=== PATIENT | male | born 1985 | race Caucasian/White ===

== ENCOUNTER 2018-10-24 20:27 | Emergency (ER) | payer SELFPAY ==
[2018-10-24] MEDS ORDERED: TETANUS & DIPHTHERIA TOX,ADULT 0.5 ML VIAL ONE (20:53)
[2018-10-24] MEDS ORDERED: LIDOCAINE 1% MPF 5 ML VIAL ONE (21:06)
[2018-10-24] MEDS ORDERED: LIDOCAINE 2% MPF 5 ML VIAL ONE (22:30)
[2018-10-24] MEDS ORDERED: LIDOCAINE 1% W/EPI 1:100,000 MDV 20 ML VIAL ONE (22:54)
[2018-10-24] MEDS ORDERED: HYDROCODONE/APAP 5/325 MG TAB ONE (22:56)
[2018-10-24] MEDS ORDERED: CEPHALEXIN 250 MG CAP ONE (23:33)
[2018-10-24] MEDS ORDERED: KETOROLAC 30 MG/ML INJ ONE (23:37)
--- NOTE | 2018-10-24 23:49 | ER ---
Nurse's Notes [facility] Name: Dick Rae Age: 33 yrs Sex: Male : 1985 Arrival Date: 10/24/2018 Time: 20:32 Bed 18 Private MD: Diagnosis: Laceration without foreign body of nose;Superficial injury of head Presentation: 10/24 20:37 Presenting complaint: EMS states: they were toned out for pt having a possible seizure bb or syncopal episode pt fell and now has laceration to left nostril. Transition of care: patient was not received from another setting of care. Onset of symptoms was October 24, 2018. Risk Assessment: Do you want to hurt yourself or someone else? Patient reports no desire to harm self or others. Initial Sepsis Screen: Does the patient meet any 2 criteria? No. Patient's initial sepsis screen is negative. Does the patient have a suspected source of infection? No. Patient's initial sepsis screen is negative. Care prior to arrival: None. 20:37 Method Of Arrival: EMS: [facility] bb 20:37 Acuity: NIURKA 3 bb Historical: - Allergies: 20:40 Paxil; bb - Home Meds: 20:40 None [Active]; bb - PMHx: 20:40 Seizures; bb - PSHx: 20:40 Appendectomy; bb - Immunization history:: Adult Immunizations up to date, Last tetanus immunization: unknown. - Social history:: Smoking status: Patient uses tobacco products, smokes one-half pack cigarettes per day, Patient/guardian denies using alcohol, street drugs. - Ebola Screening: : No symptoms or risks identified at this time. Screenin:50 Abuse screen: Denies threats or abuse. Nutritional screening: No deficits noted. jd3 Tuberculosis screening: No symptoms or risk factors identified. Fall Risk Ambulatory Aid- None/Bed Rest/Nurse Assist (0 pts). Gait- Normal/Bed Rest/Wheelchair (0 pts) Mental Status- Oriented to own ability (0 pts). Total Newby Fall Scale indicates No Risk (0-24 pts). Assessment: 20:47 General: Appears in no apparent distress. uncomfortable, Behavior is calm, cooperative, jd3 appropriate for age. Pain: Complains of pain in face Quality of pain is described as aching. Neuro: Level of Consciousness is awake, alert, obeys commands, Oriented to person, place, time, situation, Reports pt unsure if he had a syncope episode or not. Denies weakness blurred vision dizziness. Cardiovascular: Capillary refill < 3 seconds Patient's skin is warm and dry. Respiratory: Airway is patent Respiratory effort is even, unlabored, Respiratory pattern is regular, symmetrical. GI: No signs and/or symptoms were reported involving the gastrointestinal system. : No signs and/or symptoms were reported regarding the genitourinary system. EENT: No signs and/or symptoms were reported regarding the EENT system. Derm: Skin is intact, Skin is dry, Skin is normal, Skin temperature is warm Wound noted nasal septum and left nostril Wound is laceration <2 cm to left nostril noted with bleeding stopped. small amount of bleeding reported. pt reports pain to site. Musculoskeletal: Circulation, motion, and sensation intact. Range of motion: intact in all extremities. 21:47 Reassessment: Patient appears in no apparent distress at this time. Patient and/or jd3 family updated on plan of care and expected duration. Pain level reassessed. Patient is alert, oriented x 3, equal unlabored respirations, skin warm/dry/pink. awaiting CT results. 22:51 Reassessment: Patient appears in no apparent distress at this time. Patient and/or jd3 family updated on plan of care and expected duration. Pain level reassessed. Patient is alert, oriented x 3, equal unlabored respirations, skin warm/dry/pink. provider at bedside suturing. 23:56 Reassessment: Patient appears in no apparent distress at this time. Patient and/or jd3 family updated on plan of care and expected duration. Pain level reassessed. Patient is alert, oriented x 3, equal unlabored respirations, skin warm/dry/pink. reported understanding of discharge instructions, even and steady gait upon discharge. Vital Signs: 20:40 BP 115 / 68; Pulse 111; Resp 16 S; Temp 98.3(O); Pulse Ox 100% on R/A; Weight 61.23 kg bb (R); Height 6 ft. 0 in. (182.88 cm) (R); Pain 4/10; 21:48 BP 108 / 76; Pulse 83; Resp 16 S; Pulse Ox 100% on R/A; jd3 22:50 BP 113 / 84; Pulse 96; Resp 17 S; Pulse Ox 100% on R/A; jd3 20:40 Body Mass Index 18.31 (61.23 kg, 182.88 cm) bb [place] Coma Score: 20:59 Eye Response: spontaneous(4). Verbal Response: oriented(5). Motor Response: obeys kb commands(6). Total: 15. 21:00 Eye Response: spontaneous(4). Verbal Response: oriented(5). Motor Response: obeys kb commands(6). Total: 15. ED Course: 20:32 Patient arrived in ED. ds1 20:40 Triage completed. bb 20:40 Arm band placed on Patient placed in an exam room, on a stretcher, on pulse oximetry. bb 20:43 An[facility] Goodson F[facility]-C [facility]. kb 20:43 Tolu Barajas MD is Attending Physician. kb 20:46 Gatito Diana RN is Primary Nurse. jd3 20:51 Patient has correct armband on for positive identification. Bed in low position. Call jd3 light in reach. Side rails up X2. Adult w/ patient. 21:[address] via stretcher. nj 21:22 CT Head Brain wo Cont In Process Unspecified. EDMS 23:56 No provider procedures requiring assistance completed. Patient did not have IV access jd3 during this emergency room visit. Administered Medications: 20:56 Drug: Tetanus-Diphtheria Toxoid Adult 0.5 ml {Waistline Joiner Lockstitch: [employer]. Exp: jd3 06/20/2020. Lot #: [id number]. } Route: IM; Site: right deltoid; 21:55 Follow up: Response: No adverse reaction jd3 22:29 Drug: Lidocaine (1 %) 1 vials {Note: given by Angy ORTIZ..} Volume: 5 ml; jd3 Route: Infiltration; 22:57 Drug: [place] 5 mg-325 mg 1 tabs Route: PO; jd3 23:50 Follow up: Response: No adverse reaction; RASS: Alert and Calm (0) jd3 23:40 Drug: KeFLEX 500 mg Route: PO; jd3 23:55 Follow up: Response: No adverse reaction jd3 23:40 Drug: TORadol 30 mg Route: IM; Site: left deltoid; jd3 23:55 Follow up: Response: No adverse reaction jd3 Outcome: 23:48 Discharge ordered by MD. aviles 23:56 Discharged to home ambulatory, with family. jd3 23:56 Condition: stable 23:56 Discharge instructions given to patient, family, Instructed on discharge instructions, follow up and referral plans. medication usage, Demonstrated understanding of instructions, follow-up care, medications, Prescriptions given X 2. 23:57 Patient left the ED. jd3 Signatures: Dispatcher [employer] EDNH Angy Goodson, DIANA BLUM-Joseline Santana ds1 Cydney Brown, RN RN Sean Schumacher Jonathon, RN RN jd3 Corrections: (The following items were deleted from the chart) 20:50 20:47 Derm: Skin is intact, Skin is dry, Skin is normal, Skin temperature is warm jd3 jd3
--- NOTE | 2018-10-24 23:49 | EDPHYS ---
Physician Documentation [facility] Name: Dick Rae Age: 33 yrs Sex: Male : 1985 Arrival Date: 10/24/2018 Time: 20:32 Bed 18 Private MD: ED Physician Tolu Barajas HPI: 10/24 21:00 This 33 yrs old Male presents to ER via EMS with complaints of fall, kb laceration of face. 21:00 The patient or guardian reports a laceration, 2.5 cm(s), clean. The complaints affect kb the base of left nostril and nasal septum. Context of injury: The problem was sustained at home, outdoors, resulted from a fall, while walking, slipped in water in garage. Onset: The symptoms/episode began/occurred just prior to arrival. Associated signs and symptoms: Loss of consciousness: This patient experience a loss of consciousness, the patient was "dazed", Pertinent positives: loss of conciousness, injury. Severity of symptoms: At their worst the symptoms were moderate, in the emergency department the symptoms are unchanged. The patient has not experienced similar symptoms in the past. The patient has not recently seen a physician. Historical: - Allergies: 20:40 Paxil; bb - Home Meds: 20:40 None [Active]; bb - PMHx: 20:40 Seizures; bb - PSHx: 20:40 Appendectomy; bb - Immunization history:: Adult Immunizations up to date, Last tetanus immunization: unknown. - Social history:: Smoking status: Patient uses tobacco products, smokes one-half pack cigarettes per day, Patient/guardian denies using alcohol, street drugs. - Ebola Screening: : No symptoms or risks identified at this time. ROS: 20:58 Constitutional: Negative for fever, chills, and weight loss, ENT: Negative for injury, kb pain, and discharge, Neck: Negative for injury, pain, and swelling, Cardiovascular: Negative for chest pain, palpitations, and edema, Respiratory: Negative for shortness of breath, cough, wheezing, and pleuritic chest pain, Abdomen/GI: Negative for abdominal pain, nausea, vomiting, diarrhea, and constipation, MS/Extremity: Negative for injury and deformity, Neuro: Negative for headache, weakness, numbness, tingling, and seizure. 20:58 Skin: Positive for laceration(s), of the nasal septum and left nostril, base of nasal septum and left nostril. Exam: 20:58 Constitutional: This is a well developed, well nourished patient who is awake, alert, kb and in no acute distress. ENT: Nares patent. No nasal discharge, no septal abnormalities noted. Tympanic membranes are normal and external auditory canals are clear. Oropharynx with no redness, swelling, or masses, exudates, or evidence of obstruction, uvula midline. Mucous membranes moist. Neck: Trachea midline, no thyromegaly or masses palpated, and no cervical lymphadenopathy. Supple, full range of motion without nuchal rigidity, or vertebral point tenderness. No Meningismus. Chest/axilla: Normal chest wall appearance and motion. Nontender with no deformity. No lesions are appreciated. Cardiovascular: Regular rate and rhythm with a normal S1 and S2. No gallops, murmurs, or rubs. Normal PMI, no JVD. No pulse deficits. Respiratory: Lungs have equal breath sounds bilaterally, clear to auscultation and percussion. No rales, rhonchi or wheezes noted. No increased work of breathing, no retractions or nasal flaring. Abdomen/GI: Soft, non-tender, with normal bowel sounds. No distension or tympany. No guarding or rebound. No evidence of tenderness throughout. MS/ Extremity: Pulses equal, no cyanosis. Neurovascular intact. Full, normal range of motion. Neuro: Awake and alert, GCS 15, oriented to person, place, time, and situation. Cranial nerves II-XII grossly intact. Motor strength 5/5 in all extremities. Sensory grossly intact. Cerebellar exam normal. Normal gait. 20:58 Head/face: Noted is no obvious of injury or deformity except a laceration(s), that is superficial, 2.5 cm(s), of the base of nasal septum and left nostril. Vital Signs: 20:40 BP 115 / 68; Pulse 111; Resp 16 S; Temp 98.3(O); Pulse Ox 100% on R/A; Weight 61.23 kg bb (R); Height 6 ft. 0 in. (182.88 cm) (R); Pain 4/10; 21:48 BP 108 / 76; Pulse 83; Resp 16 S; Pulse Ox 100% on R/A; jd3 22:50 BP 113 / 84; Pulse 96; Resp 17 S; Pulse Ox 100% on R/A; jd3 20:40 Body Mass Index 18.31 (61.23 kg, 182.88 cm) bb [place] Coma Score: 20:59 Eye Response: spontaneous(4). Verbal Response: oriented(5). Motor Response: obeys kb commands(6). Total: 15. 21:00 Eye Response: spontaneous(4). Verbal Response: oriented(5). Motor Response: obeys kb commands(6). Total: 15. Laceration: 23:21 Wound Repair of 2.5cm ( 1.0in ) subcutaneous laceration to left nostril and nasal kb septum. Irregularly shaped.. Distal neuro/vascular/tendon intact. Anesthesia: Wound infiltrated with 5 mls of 1% lidocaine. Wound prep: Extensive cleansing, Wound irrigation. Skin closed with 4 6-0 Vicryl using interrupted sutures and sterile technique. Skin closed with 3 6-0 Prolene using simple sutures and sterile technique. Patient tolerated well. MDM: 20:43 Patient medically screened. kb 20:59 Data reviewed: vital signs, nurses notes. Data interpreted: Pulse oximetry: on room air kb is 100 %. Interpretation: normal. 23:22 Counseling: I had a detailed discussion with the patient and/or guardian regarding: the kb historical points, exam findings, and any diagnostic results supporting the discharge/admit diagnosis, radiology results, the need for outpatient follow up, a family practitioner, to return to the emergency department if symptoms worsen or persist or if there are any questions or concerns that arise at home. ED course: nasal septum and inner nare sutured by me. Dr Barajas inserted vicryl and prolene sutures to left nare cartilage.. 10/24 20:47 Order name: CT Head Brain wo Cont kb 10/24 21:02 Order name: Vicryl, Sutures; Complete Time: 22:28 kb 10/24 21:02 Order name: Dressing - Wound; Complete Time: 22:51 kb 10/24 21:02 Order name: Gloves, Sterile; Complete Time: 21:07 kb 10/24 21:02 Order name: Setup Suture Tray; Complete Time: 21:07 kb Administered Medications: 20:56 Drug: Tetanus-Diphtheria Toxoid Adult 0.5 ml {Plater Helper: [employer]. Exp: jd3 06/20/2020. Lot #: [id number]. } Route: IM; Site: right deltoid; 21:55 Follow up: Response: No adverse reaction jd3 22:29 Drug: Lidocaine (1 %) 1 vials {Note: given by Angy ORTIZ..} Volume: 5 ml; jd3 Route: Infiltration; 22:57 Drug: [place] 5 mg-325 mg 1 tabs Route: PO; jd3 23:50 Follow up: Response: No adverse reaction; RASS: Alert and Calm (0) jd3 23:40 Drug: KeFLEX 500 mg Route: PO; jd3 23:55 Follow up: Response: No adverse reaction jd3 23:40 Drug: TORadol 30 mg Route: IM; Site: left deltoid; jd3 23:55 Follow up: Response: No adverse reaction jd3 Disposition: 10/25 06:03 Co-signature as Attending Physician, Tolu Barajas MD. Disposition: 10/24/18 23:48 Discharged to Home. Impression: Laceration without foreign body of nose, Superficial injury of head. - Condition is Stable. - Discharge Instructions: Facial Laceration, [id number], Head Injury, Adult, [id number]. - Prescriptions for Keflex 500 mg Oral Capsule - take 1 capsule by ORAL route every 8 hours for 7 days; 21 capsule. Tylenol- Codeine #3 300-30 mg Oral Tablet - take 1 tablet by ORAL route every 6 hours As needed; 15 tablet. - Medication Reconciliation Form, Thank You Letter, Antibiotic Education, Prescription Opioid Use form. - Follow up: Emergency Department; When: As needed; Reason: Worsening of condition. Follow up: Private Physician; When: 2 - 3 days; Reason: Recheck today's complaints, Continuance of care, Re-evaluation by your physician. Signatures: Dispatcher [employer] EDCO Angy Goodson FNP-C FNP-Ckb Ballard, Brenda, RN RN bb Starr, Gregory, MD MD gs Davies, Jonathon, RN RN jd3 Corrections: (The following items were deleted from the chart) 10/24 23:57 23:48 10/24/2018 23:48 Discharged to Home. Impression: Laceration without foreign body jd3 of nose; Superficial injury of head. Condition is Stable. Forms are Medication Reconciliation Form, Thank You Letter, Antibiotic Education, Prescription Opioid Use. Follow up: Emergency Department; When: As needed; Reason: Worsening of condition. Follow up: Private Physician; When: 2 - 3 days; Reason: Recheck today's complaints, Continuance of care, Re-evaluation by your physician. kb
[2018-10-25 00:44] VITALS: TEMP 98.3; O2SAT 100
[2018-10-25 00:47] VITALS: BP 113/84
--- NOTE | 2018-10-25 10:03 | RAD REPORT ---
EXAM DESCRIPTION: CT - Head Brain Wo Cont - 10/24/2018 9:22 pm CLINICAL HISTORY: 33 years Male fall, LOC COMPARISON: None TECHNIQUE: Contiguous axial images of the brain were obtained without the administration of intraven ous contrast.This exam was performed according to our departmental dose-optimization program which in cludes use of Automated Exposure Control, adjustment of the mA and/or kV according to patient size an d/or use of iterative reconstruction technique. FINDINGS: Brain: No acute intracranial hemorrhage. No acute territorial infarct. No extra-axial rick ection. No mass effect or herniation. Ventricles: Within normal limits in size. Globes and orbits: No acute abnormality. Bones: No acute osseous finding. Paranasal sinuses: Paranasal sinuses are clear.. Mastoid air cells: Well pneumatized. Soft tissues: Minimal frontal midline swelling. IMPRESSION: No acute intracranial abnormality. Electronically signed by: Lester Carter DO 10/24/2018 9:33 PM CDT Due to temporary technical issues with the PACS/Fluency reporting system, reports are being signed by the in house radiologist as a courtesy to ensure prompt reporting. The interpreting radiologist is f ully responsible for the content of the report.
== END 2018-10-24 23:57 | disposition home or self-care (01) ==
LOC: ER 20:27
PROC: 09QKXZZ Repair Nasal Mucosa and Soft Tissue, External Approach (ICD-10-PCS; principal; 2018-10-24)
DX: S01.21XA Laceration without foreign body of nose, initial encounter (principal); W18.30XA Fall on same level, unspecified, initial encounter; Y93.9 Activity, unspecified; Y92.9 Unspecified place or not applicable
CPT/HCPCS: 70450; 90471; 90714; 96372; 99284

== ENCOUNTER 2020-07-08 02:24 | Emergency (ER) | payer OTHER, SELFPAY ==
[2020-07-08 03:02] LABS: Absolute Lymphocytes (CBC) 3.2 K/uL (0.7-4.9); Basophils % 1.8 % (0-1.3); Lymphocytes % 40.3 % (15.3-44.8); MPV 8.4 fL (7.6-11.3); RBC Red Blood Cell Count 4.53 M/uL (4.33-5.43)
[2020-07-08 03:11] LABS: Albumin 3.7 g/dL (3.4-5.0); Bilirubin Direct 0.1 mg/dL (0-0.2); Bilirubin Total 0.4 mg/dL (0.2-1.0); Magnesium 2.1 mg/dL (1.8-2.4); Protein, Total 6.9 g/dL (6.4-8.2)
[2020-07-08 04:05] LABS: Urine Blood 1+ (Negative); Urine Glucose Negative (Negative); Urine Protein 3+ (Negative); Urine Specific Gravity >=1.030 (1.005-1.030); Urine pH 5.5 (5.0-7.0)
[2020-07-08] MEDS ORDERED: LORazepam 2 MG/ML VIAL ONE (04:11)
[2020-07-08] MEDS ORDERED: NA CHLORIDE 0.9% 100 ML ONE (04:14)
[2020-07-08] MEDS ORDERED: LEVETIRACETAM 500 MG/5 ML VIAL IV ONE (04:14)
[2020-07-08 04:35] LABS: Barbiturates NEGATIVE (NEGATIVE); Benzodiazepines POSITIVE (NEGATIVE); Cocaine NEGATIVE (NEGATIVE); METHAMPHETAM NEGATIVE (NEGATIVE); Methadone NEGATIVE (NEGATIVE); Opiates NEGATIVE (NEGATIVE); Phencyclidine NEGATIVE (NEGATIVE); THC Cannibis POSITIVE (NEGATIVE)
[2020-07-08] MEDS ORDERED: ACETAMINOPHEN 500 MG TAB ONE (05:08)
--- NOTE | 2020-07-08 05:19 | ER ---
Nurse's Notes [facility] Name: Dick Rae Age: 35 yrs Sex: Male : 1985 Arrival Date: 07/08/2020 Time: 02:27 Bed 19 Private MD: Diagnosis: Epileptic seizures related to external causes;Cannabis dependence Presentation: 07/08 02:30 Chief complaint: EMS states: Pt BIB EMS from home for c/o "seizure". Pt reports hx of ad5 same, denies medication at home for this. Pt AAOx3 upon arrival to ED. Resp even/unlabored. VSS. Coronavirus screen: At this time, the client does not indicate any symptoms associated with coronavirus-19. Ebola Screen: No symptoms or risks identified at this time. Initial Sepsis Screen: Does the patient meet any 2 criteria? No. Patient's initial sepsis screen is negative. Does the patient have a suspected source of infection? No. Patient's initial sepsis screen is negative. Risk Assessment: Do you want to hurt yourself or someone else? Patient reports no desire to harm self or others. Onset of symptoms is unknown. 02:30 Method Of Arrival: EMS: [facility] ad5 02:30 Acuity: NIURKA 3 ad5 Triage Assessment: 02:34 General: Appears in no apparent distress. comfortable, Behavior is calm, cooperative, ad5 appropriate for age. Historical: - Allergies: 02:34 NKDA; ad5 - PMHx: 02:34 Seizures; ad5 - Immunization history:: Adult Immunizations unknown. - Social history:: Smoking status: unknown. Screenin:06 Abuse screen: Denies threats or abuse. Denies injuries from another. Nutritional ad5 screening: No deficits noted. Tuberculosis screening: No symptoms or risk factors identified. Fall Risk Fall in past 12 months (25 points). Secondary diagnosis (15 points) IV access (20 points). Ambulatory Aid- None/Bed Rest/Nurse Assist (0 pts). Gait- Normal/Bed Rest/Wheelchair (0 pts) Mental Status- Oriented to own ability (0 pts). Total Newby Fall Scale indicates High Risk Score (45 or more points). Fall prevention measures have been instituted. Side Rails Up X 2 Placed Close to Nursing Station Frequent Obs/Assessments Occuring Family Present and informed to notify staff if the need to leave the bedside As available patient and family educated on Fall Prevention Program and Strategies. Assessment: 02:38 General: Appears in no apparent distress. comfortable, Behavior is calm, cooperative, ad5 appropriate for age. Pain: Denies pain. Neuro: Level of Consciousness is awake, alert, obeys commands, Oriented to person, place, situation, Investment Banking Analyst are equal bilaterally Moves all extremities. Speech is normal, Facial symmetry appears normal, Pupils are PERRLA, Intact. Cardiovascular: No deficits noted. Heart tones present Capillary refill < 3 seconds JVD is absent Patient's skin is warm and dry. Pulses are all present. Rhythm is regular. Respiratory: No deficits noted. Airway is patent Trachea midline Respiratory effort is even, unlabored, Respiratory pattern is regular, symmetrical, Breath sounds are clear bilaterally. GI: No deficits noted. GI: No signs and/or symptoms were reported involving the gastrointestinal system. : No deficits noted. No signs and/or symptoms were reported regarding the genitourinary system. EENT: No deficits noted. No signs and/or symptoms were reported regarding the EENT system. Derm: No deficits noted. Skin is pink, warm \\T\\ dry. Musculoskeletal: No deficits noted. No signs and/or symptoms reported regarding the musculoskeletal system. 03:09 Reassessment: Patient appears in no apparent distress at this time. Patient and/or ad5 family updated on plan of care and expected duration. Pain level reassessed. Patient is alert, oriented x 3, equal unlabored respirations, skin warm/dry/pink. 04:11 Reassessment: Patient has seizure at this time. Patient standing at beside using urinal jm8 and has seizure and falls and hits head witnessed by mother. Seizure lasts approximately 3 minutes. Received verbal order for 2 mg [address] IV from Dr. Leon. Patient becomes combative when out of seizure but is reorientable. gives verbal order for Keppra IV. 05:00 Reassessment: Patient appears in no apparent distress at this time. Pt resting ad5 comfortably in stretcher with mother at bedside. Bedrails up x 2 with seizure pads, bed low and locked, call light within reach. Pt AAOx3, speech clear and appropriate. VSS. NAD noted, will continue to monitor. Patient states feeling better. Vital Signs: 02:30 BP 121 / 76; Pulse 72; Resp 16 S; Temp 97.8; Pulse Ox 99% on R/A; Weight 61.23 kg; ad5 Height 6 ft. (182.88 cm); Pain 0/10; 02:35 BP 115 / 78; Pulse 79; Resp 18; Temp 97.8; Pulse Ox 100% on R/A; oe 03:09 BP 112 / 76; Pulse 64; Resp 16 S; Pulse Ox 97% on R/A; ad5 06:26 BP 115 / 73; Pulse 69; Resp 16; Pulse Ox 99% on R/A; jm8 02:30 Body Mass Index 18.31 (61.23 kg, 182.88 cm) ad5 ED Course: 02:27 Patient arrived in ED. mw2 02:29 Silvano Leon MD is Attending Physician. tw4 02:30 Masoud Otero is Primary Nurse. ad5 02:32 Triage completed. ad5 03:06 Patient has correct armband on for positive identification. Bed in low position. Call ad5 light in reach. Side rails up X2. Adult w/ patient. monitor worker on. Pulse ox on. NIBP on. Door closed. Noise minimized. Warm blanket given. 03:06 No provider procedures requiring assistance completed. Inserted saline lock: 18 gauge ad5 in right antecubital area, using aseptic technique. EMS field start. 04:17 Arm band placed on. jm8 04:25 CT Head Brain wo Cont In Process Unspecified. EDMS 06:28 IV discontinued, intact. jm8 Administered Medications: 04:00 Drug: Ativan (LORazepam) 2 mg Route: IVP; Site: left forearm; ad5 06:15 Follow up: Response: No adverse reaction jm8 04:09 Drug: Keppra (levETIRAcetam) 1000 mg Route: IV; Rate: calculated rate; Site: left ad5 forearm; 05:00 Follow up: Response: No adverse reaction; IV Status: Completed infusion jm8 Outcome: 05:18 Discharge ordered by . tw4 06:27 Discharged to home ambulatory, with family. jm8 06:27 Condition: good 06:27 Discharge instructions given to patient, family, Instructed on discharge instructions, follow up and referral plans. medication usage, Demonstrated understanding of instructions, follow-up care, medications. 06:28 Patient left the ED. jm8 Signatures: Dispatcher [employer] EDSD Andrew Arora Silvano Lozano MD MD tw4 Isabella Cortez mw2 Osmani Cardona RN RN jm8 Masoud Otero ad5 Corrections: (The following items were deleted from the chart) 02:40 02:30 Chief complaint: EMS states: Pt BIB EMS from home for c/o "seizure". Pt reports ad5 hx of same, denies medication at home for this. Pt AAOx2 upon arrival to ED. Resp even/unlabored. VSS. ad5
--- NOTE | 2020-07-08 05:19 | EDPHYS ---
Physician Documentation [facility] Name: Dick Rae Age: 35 yrs Sex: Male : 1985 Arrival Date: 07/08/2020 Time: 02:27 Bed 19 Private MD: ED Physician Silvano Leon HPI: 07/08 04:03 This 35 yrs old Male presents to ER via EMS with complaints of seizure. tw4 04:03 The patient presents after having a single isolated seizure. Character of seizure(s): tw4 Loss of consciousness:. Seizure onset: just prior to arrival. Context: the seizure(s) was witnessed, by family. Seizure Hx: Cause: substance abuse. Associated injury: The patient did not suffer any apparent associated injury. The patient has not experienced similar symptoms in the past. Historical: - Allergies: 02:34 NKDA; ad5 - PMHx: 02:34 Seizures; ad5 - Immunization history:: Adult Immunizations unknown. - Social history:: Smoking status: unknown. ROS: 04:03 Constitutional: Negative for fever, chills, and weight loss, Eyes: Negative for injury, tw4 pain, redness, and discharge, ENT: Negative for injury, pain, and discharge, Cardiovascular: Negative for chest pain, palpitations, and edema, Respiratory: Negative for shortness of breath, cough, wheezing, and pleuritic chest pain, Abdomen/GI: Negative for abdominal pain, nausea, vomiting, diarrhea, and constipation, Back: Negative for injury and pain, MS/Extremity: Negative for injury and deformity, Skin: Negative for injury, rash, and discoloration. 04:03 Neuro: Positive for seizure activity, Negative for altered mental status, dizziness, gait disturbance, headache, hearing loss, loss of consciousness, numbness, syncope, near syncope, tingling, tinnitus, tremor, visual changes, weakness. Exam: 04:03 Constitutional: This is a well developed, well nourished patient who is awake, alert, tw4 and in no acute distress. Head/Face: Normocephalic, atraumatic. Neck: Trachea midline, no thyromegaly or masses palpated, and no cervical lymphadenopathy. Supple, full range of motion without nuchal rigidity, or vertebral point tenderness. No Meningismus. Chest/axilla: Normal chest wall appearance and motion. Nontender with no deformity. No lesions are appreciated. Cardiovascular: Regular rate and rhythm with a normal S1 and S2. No gallops, murmurs, or rubs. Normal PMI, no JVD. No pulse deficits. Respiratory: Lungs have equal breath sounds bilaterally, clear to auscultation and percussion. No rales, rhonchi or wheezes noted. No increased work of breathing, no retractions or nasal flaring. Abdomen/GI: Soft, non-tender, with normal bowel sounds. No distension or tympany. No guarding or rebound. No evidence of tenderness throughout. Back: No spinal tenderness. No costovertebral tenderness. Full range of motion. Skin: Warm, dry with normal turgor. Normal color with no rashes, no lesions, and no evidence of cellulitis. MS/ Extremity: Pulses equal, no cyanosis. Neurovascular intact. Full, normal range of motion. Vital Signs: 02:30 BP 121 / 76; Pulse 72; Resp 16 S; Temp 97.8; Pulse Ox 99% on R/A; Weight 61.23 kg; ad5 Height 6 ft. (182.88 cm); Pain 0/10; 02:35 BP 115 / 78; Pulse 79; Resp 18; Temp 97.8; Pulse Ox 100% on R/A; oe 03:09 BP 112 / 76; Pulse 64; Resp 16 S; Pulse Ox 97% on R/A; ad5 06:26 BP 115 / 73; Pulse 69; Resp 16; Pulse Ox 99% on R/A; jm8 02:30 Body Mass Index 18.31 (61.23 kg, 182.88 cm) ad5 MDM: 02:29 Patient medically screened. tw4 05:16 Differential diagnosis: seizure. Data reviewed: vital signs, nurses notes. Data tw4 reviewed: lab test result(s), CBC, electrolytes, urine drug screen, radiologic studies, CT scan. Data interpreted: Pulse oximetry: Interpretation: normal. Counseling: I had a detailed discussion with the patient and/or guardian regarding: the historical points, exam findings, and any diagnostic results supporting the discharge/admit diagnosis. Special discussion: I discussed with the patient/guardian in detail that at this point there is no indication for admission to the hospital. It is understood, however, that if the symptoms persist or worsen the patient needs to return immediately for re-evaluation. 07/08 02:30 Order name: UDS; Complete Time: 05:15 tw4 07/08 05:15 Interpretation: Normal except: BZO POSITIVE; THC POSITIVE. 07/08 02:30 Order name: Basic Metabolic Panel; Complete Time: 03:59 tw4 07/08 03:59 Interpretation: Normal except: GLUC 107; CO2 18; CL 110; BUN 20; GFR 76. tw07/08 02:30 Order name: CBC with Diff; Complete Time: 03:59 tw4 07/08 03:59 Interpretation: Normal except: MCV 92.7. 07/08 02:30 Order name: Hepatic Function; Complete Time: 03:59 tw4 07/08 03:59 Interpretation: Within normal limits. 07/08 02:30 Order name: Lipase; Complete Time: 03:59 tw4 07/08 03:59 Interpretation: Within normal limits: LIP 71. 07/08 02:30 Order name: Magnesium; Complete Time: 03:59 tw4 07/08 03:59 Interpretation: Within normal limits: MG 2.1. 07/08 02:30 Order name: Cardiac monitoring; Complete Time: 03:08 tw07/08 02:30 Order name: IV Saline Lock; Complete Time: 03:08 tw4 07/08 02:30 Order name: Labs collected and sent; Complete Time: 03:08 07/08 02:30 Order name: NPO; Complete Time: 03:08 tw4 07/08 03:59 Order name: CT Head Brain wo Cont tw4 07/08 04:04 Order name: Urine Dipstick-Ancillary; Complete Time: 05:15 EDMS 07/08 05:16 Interpretation: Normal except: UKET Trace; UBLD 1+; UPROT 3+. 07/08 02:30 Order name: O2 Sat Monitoring; Complete Time: 03:08 tw07/08 02:30 Order name: Urine Dipstick-Ancillary (obtain specimen); Complete Time: 04:20 tw4 Administered Medications: 04:00 Drug: Ativan (LORazepam) 2 mg Route: IVP; Site: left forearm; ad5 06:15 Follow up: Response: No adverse reaction 8 04:09 Drug: Keppra (levETIRAcetam) 1000 mg Route: IV; Rate: calculated rate; Site: left ad5 forearm; 05:00 Follow up: Response: No adverse reaction; IV Status: Completed infusion jm8 Disposition: 07/08/20 05:18 Discharged to Home. Impression: Epileptic seizures related to external causes, Cannabis dependence. - Condition is Stable. - Discharge Instructions: Substance Use Disorder, Seizure, Adult. - Prescriptions for Keppra 500 mg Oral Tablet - take 1 tablet by ORAL route every 12 hours; 20 tablet. - Medication Reconciliation Form, Thank You Letter, Antibiotic Education, Prescription Opioid Use, Work release form form. - Follow up: Private Physician; When: Upon discharge from the Emergency Department; Reason: Recheck today's complaints, Continuance of care, Re-evaluation by your physician. - Problem is new. - Symptoms have improved. Signatures: Dispatcher [employer] Silvano Garsia MD MD tw4 Osmani Cardona RN RN jm8 Masoud Otero Corrections: (The following items were deleted from the chart) 06:28 05:18 07/08/2020 05:18 Discharged to Home. Impression: Epileptic seizures related to jm8 external causes; Cannabis dependence. Condition is Stable. Forms are Medication Reconciliation Form, Thank You Letter, Antibiotic Education, Prescription Opioid Use. Follow up: Private Physician; When: Upon discharge from the Emergency Department; Reason: Recheck today's complaints, Continuance of care, Re-evaluation by your physician. Problem is new. Symptoms have improved. tw4
[2020-07-08 06:35] VITALS: TEMP 97.8
[2020-07-08 06:40] VITALS: BP 115/73; O2SAT 99
--- NOTE | 2020-07-08 10:38 | RAD REPORT ---
EXAM DESCRIPTION: CT - Head Brain Wo Cont - 07/08/2020 6:36 am CLINICAL HISTORY: The patient is 35 years old and is Male; TRAUMA TECHNIQUE: Axial computed tomography images of the head/brain without intravenous contrast. Sagitt al and coronal reformatted images were created and reviewed. This CT exam was performed using one o r more of the following dose reduction techniques: automated exposure control, adjustment of the mA and/or kV according to patient size, and/or use of iterative reconstruction technique. COMPARISON: No relevant prior studies available. FINDINGS: Brain: Unremarkable. No hemorrhage. No significant white matter disease. No edema. Ventricles: Unremarkable. No ventriculomegaly. Bones/joints: Unremarkable. No acute skull fracture. Soft tissues: Unremarkable. Sinuses: Unremarkable as visualized. No acute sinusitis. Mastoid air cells: No significant mastoid fluid. IMPRESSION: No intracranial hemorrhage. No acute skull fracture. Electronically signed by: Leeanne Aviles MD 07/08/2020 4:35 AM CDT Due to temporary technical issues with the PACS/Fluency reporting system, reports are being signed by the in house radiologists without review as a courtesy to insure prompt reporting. The interpreting radiologist is fully responsible for the content of the report.
== END 2020-07-08 06:28 | disposition home or self-care (01) ==
LOC: ER 02:24
DX: G40.509 Epileptic seizures related to external causes, not intractable, without status epilepticus (principal); F12.20 Cannabis dependence, uncomplicated
CPT/HCPCS: 96365; 85025; 80048; 36415; 83735; 80076; 80307 ×8; 81003; 83690; 70450; 96375; 99284; J1953